=== PATIENT | female | born 1995 | race Caucasian/White ===

== ENCOUNTER 2020-04-24 13:00 | Emergency (ER) | payer MEDICAID, SELFPAY ==
[2020-04-24 13:01] VITALS: BP 134/65; PULSE 101; RESP 16; TEMP 36.2; O2SAT 100; BMI 27.8
--- NOTE | 2020-04-24 13:09 | US_ITS ---
STUDY: FIRST TRIMESTER OBSTETRICAL ULTRASOUND REASON FOR EXAM: Female, 24 years old pain bleeding pain and bleeding LMP: TECHNIQUE: Grayscale, color and spectral analysis was performed TECHNICAL QUALITY: Adequate. PRIOR ULTRASOUND: None. FINDINGS: Intrauterine gestational sac seen with mean sac diameter of approximately 8mm. Yolk sac is visualized measuring up to 3.4 mm. pole is seen with crown-rump length of approximately 6.5 mm corresponding to 6 weeks and 0 days of gestation. cardiac activity is between 111 215 bpm. Somewhat flattened appearance of the gestational sac and yolk sac seen The uterus measures up to 8.5 cm x 6 cm x 5.2 cm. Cervix is closed. The right ovary measures up to 4 cm x 2.2 cm x 2 cm The left ovary measures up to 4 cm x 3 cm x 2.7 cm with cystic structure measuring up to 1.3 cm possibly a dominant follicle. No free fluid in the pelvis. IMPRESSION: Single viable exam with heart rate of approximately 111 215 bpm an ultrasound estimated gestational age of 6 weeks and 0 days. However somewhat flattened appearance of the gestational sac and yolk sac seen. Impending is not excluded. Please consider short-term follow-up imaging along with correlation with serial beta-hCG Electronically Signed: Mike Funes, at 15:33 EST Tel , Service support , US/Transvaginal w/Preg US
--- NOTE | 2020-04-24 13:30 | ED.VIS.GEN ---
History of Present Illness Chief Complaint: Vag Bld, Preg Informant: Patient Onset: Today Maximum Severity: Mild Narrative: Patient reports presents reporting that she is 7 weeks by dates, she indicates has had scant vaginal bleeding intermittently throughout the course of her , she has not seen any of her providers yet, she she is 2 healthy children she reports at one time she had a that was barely detected on the blood tests and went away without therapy, no other clarification Indicates that her 2 children no complications she indicates she is not seen any her providers but she reports she had a quant beta hCG done on Saturday that was 2700, no back pain no fever no cough no coronavirus exposures, no history of [employer] pathology or ectopic Past Medical History - Allergies and Home Meds Allergies/Adverse Reactions: Allergies No Known Allergies Allergy (Verified 04/24/20 13:02) Primary Care Physician: NOT,DEFINED [NON-STAFF] - Past Medical History: - - Includes as above history Smoking Status: Never smoker Review of Systems General: Denies: Chills, Fever, Sweats Eyes: Denies: Visual changes - bilaterally, Diplopia ENT: Denies: Rhinorrhea, Sore throat Cardiovascular: Denies: Chest pain, Palpitations Respiratory: Denies: Dyspnea, Cough, Dyspnea on exertion Gastrointestinal: Denies: Abdominal pain, Nausea, Vomiting, Diarrhea, Melena, Hematochezia Genitourinary: Reports: - - Vaginal bleeding. Denies: Dysuria, Hematuria, Frequency Musculoskeletal: Denies: Back pain, Extremity Pain Skin: Denies: Rash, Wounds Neurological: Denies: Headache, Weakness, Numbness Physical Exam Vital Signs/Narrative: Vital Signs Temp Pulse Resp BP Pulse Ox 04/24/20 13:01 97.1 F L 101 H 16 134/65 H 100 General: Well nourished, Well developed, No Acute Distress Head: Normocephalic, Atraumatic Eyes: Perrl, EOMI ENT: Moist mucous membranes, No rhinorrhea Neck: Supple, Nontender Cardiovascular: Regular rate, Regular rhythm, No murmurs Respiratory: No distress, CTA bilaterally, Chest nontender Abdomen: Soft, Nontender, Nondistended, Normal bowel sounds Back: Nontender, Normal Inspection Extremities: Nontender, No edema Skin: Normal color, No rash Neurological: Alert, Oriented x3, Cranial nerves II-XII grossly intact, Normal Strength, Normal Sensation Psychological: Normal affect, Normal Mood Diagnostic/Tx/Re-eval - Medical Decision Making Resting comfortably in the bed vital signs are unremarkable again she indicates her quant on Saturday was 2700 she is known to be O- she received RhoGam injections in the past at this time will obtain ED screening evaluation labs ultrasound RhoGam and proceed based on results The ED screening evaluation shows hemoglobin CBC generally unremarkable, quant is pending, RhoGam given, pelvic ultrasound per radiology shows IUP heart rate 110, 7 weeks, the gestational sac seems to have some slight irregularity to it there is no signs of ectopic or free pelvic fluid Explained the above to the patient explained the concept of with early vaginal bleeding versus threatened AB she understands she will be discharged home to use Tylenol for the pain rest follow-up with her outpatient providers on Saturday and return for change in symptoms Home stable Impression final intrauterine 7 weeks gestational age, vaginal bleeding threatened AB ED Disposition - Plan for ED Patient: Diagnosis: Threatened Instructions: ED Possible Miscarriage ... Referrals: NOT,DEFINED [NON-STAFF] - Additional Instructions: Follow-up with your [facility] [employer] team tomorrow, rest return for change in symptoms
[2020-04-24 13:45] LABS: Absolute Lymphocyte Count 2.04 X10^3/uL (0.83-4.51); Basophil# 0.02 X10^3/uL; Basophil% 0.2 % (0-1); Eosinophil# 0.06 X10^3/uL; Eosinophils% 0.7 % (0-5); Hematocrit 40.8 % (37-47); Hemoglobin 13.8 g/dL (12.0-15.0); Lymphocyte # 2.04 X10^3/ul (4.0); Lymphocyte % 23.2 % (19-41); Mean Corp Hgb Conc 33.8 g/dL (32-36); Mean Corpuscular Hgb 29.9 pg (27.0-32.0); Mean Corpuscular Volume 88.5 fL (81-99); Mean Platelet Vol. 9.9 fl (6.2-12.0); Monocyte# 0.68 X10^3/uL; Monocyte% 7.7 % (0-10); NRBC Flagged by Analyzer 0 % (0-5); Neutrophil # 5.97 X10^3/uL (2.7-7.7); Neutrophil % 67.7 % (47-70); Platelet Count 221 K/mm3 (150-450); RBC Distribution Width CV 12.3 % (11.6-14.6); RBC Distribution Width SD 39.8 fl (35.1-43.9); Red Blood Count 4.61 M/mm3 (4.2-5.4); White Blood Count 8.8 K/mm3 (4.4-11.0)
[2020-04-24 14:18] LABS: hCG Titer Quant., Serum 2675 mIU/mL (1-3)
[2020-04-24 15:54] VITALS: BP 116/72; PULSE 91; RESP 16; O2SAT 97
== END 2020-04-24 16:00 | disposition home or self-care (01) ==
LOC: ED 15:16
PROVIDERS: Emergency Provider Emergency Medicine
DX: O20.0 Threatened abortion (principal); Z3A.01 Less than 8 weeks gestation of pregnancy
CPT/HCPCS: 76817; 84702; 85025; 86900; 86901; 90384; 96372; 99283; A4216; J2790